=== PATIENT | male | born 1950 ===

== ENCOUNTER → 2017-06-15 | Day surgery (SDC) | payer MEDICARE, OTHER ==
[2016-04-07 07:40] VITALS: BMI 28.1
[~2017-06-15] MED LIST: Belladonna-Phenobarbital PO ONE; Ciprofloxacin 400mg/200ml D5W 400 MG/200 ML BAG IVPB STA; Midazolam 2 MG/2 ML VIAL ONE; Propofol 10 mg/ml Inj (20 ML) ONE
--- NOTE | 2017-06-15 07:45 | CP.SDSHP ---
Same Day Surgery H & P - History Proposed Procedure: EGD/COLONSCOPY Pre-Op Diagnosis: SEE NOTES - Previous Medical/Surgical History Cardiac: Hypertension Pulmonary: Asthma Endocrine/Metabolic: Diabetes, Other Neuro: Backaches Misc: Other Pain: 4.Moderate Pain - Allergies Allergies: Allergies No Known Allergies Allergy (Verified 04/07/16 07:39) - Physical Exam General Appearance: N Vital Signs: Vital Signs 06/15/17 06:31 Temperature 97.6 F Pulse Rate 74 Respiratory 19 Rate Blood Pressure 124/78 O2 Sat by Pulse 98 Oximetry Mental Status: Alert & Oriented x3 Neuro: WNL Heart: Other Lungs: Other GI: Other - {Optional Preform as Required} Breast: WNL Abdomen: Other Rectal: Other Integument: WNL : WNL Ortho: WNL ENT: WNL - Impression Pt. Evaluated Today:Candidate for Anesthesia & Procedure: Yes - Date & Time Time: 07:45 Short Stay Discharge - Short Stay Discharge Admitting Diagnosis/Reason for Visit: DYSPEPSIA / RECTAL BLEEDING Disposition: HOME/ ROUTINE
[2017-06-15 10:12] VITALS: TEMP 97
[2017-06-15 10:19] VITALS: BP 129/64; PULSE 78; RESP 18; O2SAT 99
== END | disposition home or self-care (01) ==
LOC: C.ENDO 06:01
PROVIDERS: ATTEND Specialist
DX: K62.5 Hemorrhage of anus and rectum (principal); R10.84 Generalized abdominal pain; R19.4 Change in bowel habit; K64.4 Residual hemorrhoidal skin tags; K64.8 Other hemorrhoids; K21.0 Gastro-esophageal reflux disease with esophagitis; K44.9 Diaphragmatic hernia without obstruction or gangrene; K25.9 Gastric ulcer, unspecified as acute or chronic, without hemorrhage or perforation; E11.9 Type 2 diabetes mellitus without complications; I10 Essential (primary) hypertension; J45.909 Unspecified asthma, uncomplicated
CPT/HCPCS: 43239; 45380; 82948; 88305; J0744; J2001; J2250; J2704